=== PATIENT | female | born 1995 | race Caucasian/White ===

== ENCOUNTER 2020-04-17 11:46 | Emergency (ER) | payer OTHER ==
[~2020-04-17] VITALS: Ht 167.6 cm; Wt 68.0 kg
[2020-04-17 11:54] VITALS: Ht 167.6 cm; Wt 68.0 kg
[2020-04-17 13:06] VITALS: BP 106/73
== END 2020-04-17 13:35 | disposition other institution (70) ==
LOC: ED 11:46
DX: F19.10 Other psychoactive substance abuse, uncomplicated (principal); L08.9 Local infection of the skin and subcutaneous tissue, unspecified

== ENCOUNTER 2020-04-17 11:46 | Emergency (ER) | payer OTHER | END 2020-04-17 13:35 | disposition other institution (70) | LOC: ED 11:46 | DX: Z02.89 Encounter for other administrative examinations (principal) ==